=== PATIENT | male | born 1970 | race Caucasian/White ===

== ENCOUNTER → 2022-08-13 11:36 | Outpatient (CLI) | payer OTHER, SELFPAY ==
--- NOTE | ~2022-08-13 | XR_ITS ---
XR lumbar spine min 4V 08/13/2022 12:14 Indication: Low back pain. Sciatica. Procedure: 5 views lumbar spine Comparison: No prior studies for comparison. Findings: There is normal lumbar lordosis. Vertebral body heights are maintained. There is disc narro wing at L1-2 and L4-5. There is facet hypertrophy at L4-5 and L5-S1. No fracture, subluxation or spon dylolisthesis. Pedicles intact. Sacral foramen are symmetric. Impression: 1: Mild lumbar spondylosis. Reviewed, dictated and finalized at location A. Impression: 1: Mild lumbar spondylosis.
== END ==
PROVIDERS: PCP Internal Medicine Infectious Disease; Visit Provider Chiropractor
DX: M54.42 Lumbago with sciatica, left side (principal); M99.02 Segmental and somatic dysfunction of thoracic region; M99.03 Segmental and somatic dysfunction of lumbar region; M99.04 Segmental and somatic dysfunction of sacral region; M79.18 Myalgia, other site; M47.896 Other spondylosis, lumbar region
CPT/HCPCS: 72110